=== PATIENT | female | born 1995 | race Hispanic/Latino ===

== ENCOUNTER → 2024-06-05 09:20 | Outpatient (REF) | payer OTHER, SELFPAY ==
[2024-06-05 11:05] LABS: Rubella Positive
[2024-06-07 07:55] LABS: Quantiferon Mitogen minus NIL 9.96 IU/mL; Quantiferon NIL 0.04 IU/mL; Quantiferon TB Gold Plus Negative (Negative)
== END ==
LOC: OHS 09:20
PROVIDERS: ATTENDING PHYSICIAN Nurse Practitioner Family
DX: Z23 Encounter for immunization (principal)
CPT/HCPCS: 36415; 86480; 86735; 86762; 86765

== ENCOUNTER → 2024-06-23 16:37 | Outpatient (REF) | payer BC, SELFPAY | LOC: RAD 16:37 | PROVIDERS: ATTENDING PHYSICIAN Obstetrics & Gynecology Gynecology | DX: Z30.431 Encounter for routine checking of intrauterine contraceptive device (principal) | CPT/HCPCS: 76830; 76856 ==

== ENCOUNTER → 2024-10-31 07:23 | Outpatient (REF) | payer BC, SELFPAY | LOC: RAD 07:23 | PROVIDERS: ATTENDING PHYSICIAN Physician Assistant | DX: R10.13 Epigastric pain (principal) | CPT/HCPCS: 76700 ==